=== PATIENT | male | born 1935 | race Caucasian/White ===

== ENCOUNTER 2019-07-21 14:13 | Emergency (ER) | payer MEDICARE, BC ==
[2019-07-21] MEDS ORDERED: Sodium Chloride 0.9% 10 ML Syringe FLUSH PRN (16:24)
--- NOTE | 2019-07-21 16:43 | EDM.PDOC ---
ED HPI GENERAL MEDICAL PROBLEM - General Chief Complaint: Upper Extremity Injury/Pain Stated Complaint: R HAND SKIN COMPLAINT Time Seen by Provider: 07/21/19 16:00 Source of Information: Reports: Patient History Limitations: Reports: No Limitations - History of Present Illness INITIAL COMMENTS - FREE TEXT/NARRATIVE: Patient is an 84-year-old male who presents to the ER with right hand pain and erythema and left elbow pain. 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 Upon waking on Sunday morning his right hand was warm, red, and swollen. He is also having some pain in his left elbow. He denies a history of gout, however states he does have some arthritis. He states that he did have a small open area on the his right hand "a couple days ago". He has not had any fever, chills, nausea, or vomiting. Patient also complains of pain to his left elbow. He did not have a known injury to it, however states that he was using it more frequently on Sunday as well. Right Hand Pain Score (Numeric/FACES): 8 - Related Data Allergies Allergy/AdvReac Type Severity Reaction Status Date / Time adhesive tape Allergy Blisters Verified 07/21/19 14:35 Home Meds: Home Meds cephALEXin [Keflex] 500 mg PO Q6H #28 cap 07/21/19 [Rx] Past Medical History HEENT History: Reports: Impaired Vision Other HEENT History: wears glasses - Past Surgical History HEENT Surgical History: Reports: Adenoidectomy, Tonsillectomy Social & Family History - Family History Family Medical History: Noncontributory - Tobacco Use Smoking Status *Q: Light Tobacco Smoker Years of Tobacco use: 30 Packs/Tins Daily: 0.1 - Caffeine Use Caffeine Use: Reports: Coffee Review of Systems - Review of Systems Review Of Systems: See Below Constitutional: Reports: No Symptoms Eyes: Reports: No Symptoms Ears: Reports: No Symptoms Nose: Reports: No Symptoms Mouth/Throat: Reports: No Symptoms Respiratory: Reports: No Symptoms Cardiovascular: Reports: No Symptoms GI/Abdominal: Reports: No Symptoms Genitourinary: Reports: No Symptoms Musculoskeletal: Reports: Other (right hand pain, redness, edema, and warmth. Left elbow pain with movement. ) Skin: Reports: Erythema (right hand) Neurological: Reports: No Symptoms Psychiatric: Reports: No Symptoms ED EXAM, GENERAL - Physical Exam Exam: See Below Exam Limited By: No Limitations General Appearance: Alert, WD/WN, No Apparent Distress Respiratory/Chest: No Respiratory Distress, Lungs Clear, Normal Breath Sounds, No Accessory Muscle Use, Chest Non-Tender Cardiovascular: Normal Peripheral Pulses, Regular Rate, Rhythm, No Edema, No Gallop, No JVD, No Murmur, No Rub Extremities: Other (Edema, warmth, and redness to the volar aspect of the right hand extending from the wrist into the fingers. There is a 1 cm partially healed lesion to the volar aspect of the right hand proximal of the second MCP joint. Patient verbalizes pain with range of motion of the left elbow. There is no redness, warmth, or edema noted to this joint.) Neurological: Alert, Oriented, CN II-XII Intact, Normal Cognition, Normal Gait, Normal Reflexes, No Motor/Sensory Deficits Psychiatric: Normal Affect, Normal Mood Skin Exam: Warm, Dry, Intact, Normal Color, No Rash Lymphatic: No Adenopathy Course - Vital Signs Last Recorded V/S: Last Vital Signs Temp 98.9 F 07/21/19 14:35 Pulse 90 07/21/19 14:35 Resp 16 07/21/19 14:35 BP 125/62 07/21/19 14:35 Pulse Ox 97 07/21/19 14:35 - Orders/Labs/Meds Orders: Active Orders 24 hr Category Date Time Status Peripheral IV Care [RC] . DIRECTED Care 07/21/19 16:24 Active Peripheral IV Insertion Adult [OM.PC] Stat Oth 07/21/19 16:24 Ordered Labs: Laboratory Tests 07/21/19 07/21/19 Range/Units 16:55 16:55 WBC 13.05 H (4.23-9.07) K/mm3 RBC 4.96 (4.63-6.08) M/mm3 Hgb 15.0 (13.7-17.5) gm/dl Hct 45.7 (40.1-51.0) % MCV 92.1 (79.0-92.2) fl MCH 30.2 (25.7-32.2) pg MCHC 32.8 (32.2-35.5) g/dl RDW Std Deviation 48.9 H (35.1-43.9) fL Plt Count 190 (163-337) K/mm3 MPV 9.7 (9.4-12.3) fl Neut % (Auto) 65.0 (34.0-67.9) % Lymph % (Auto) 19.8 L (21.8-53.1) % [place] % (Auto) 14.2 H (5.3-12.2) % Eos % (Auto) 0.5 L (0.8-7.0) Baso % (Auto) 0.2 (0.1-1.2) % Neut # (Auto) 8.49 H (1.78-5.38) K/mm3 Lymph # (Auto) 2.58 (1.32-3.57) K/mm3 [place] # (Auto) 1.85 H (0.30-0.82) K/mm3 Eos # (Auto) 0.06 (0.04-0.54) K/mm3 Baso # (Auto) 0.03 (0.01-0.08) K/mm3 Manual Slide Review Sodium 138 (136-145) mEq/L Potassium 3.9 (3.5-5.1) mEq/L Chloride 104 (98-107) mEq/L Carbon Dioxide 25 (21-32) mEq/L Anion Gap 12.9 (5-15) BUN 12 (7-18) mg/dL Creatinine 0.7 (0.7-1.3) mg/dL Est Cr Clr Drug Dosing 65.89 mL/min Estimated GFR (MDRD) > 60 (>60) mL/min BUN/Creatinine Ratio 17.1 (14-18) Glucose 108 (83-115) mg/dL Uric Acid 3.7 (3.5-7.2) mg/dL Calcium 8.7 (8.5-10.1) mg/dL Total Bilirubin 1.0 (0.2-1.0) mg/dL AST 18 (15-37) U/L ALT 18 (16-63) U/L Alkaline Phosphatase 79 (46-116) U/L C-Reactive Protein 9.8 H* (<1.0) mg/dL Total Protein 6.8 (6.4-8.2) g/dl Albumin 3.3 L (3.4-5.0) g/dl Globulin 3.5 gm/dL Albumin/Globulin Ratio 0.9 L (1-2) Meds: Medications Discontinued Medications Generic Name Dose Route Start Last Admin Trade Name Deisy PRN Reason Stop Dose Admin Cefazolin Sodium/Dextrose 2 gm 50 mls @ 100 mls/hr 07/21/19 17:59 07/21/19 18 :16 / Premix IV 07/21/19 18:28 100 mls/hr ONETIME ONE Administration Sodium Chloride 10 ml 07/21/19 16:24 Saline Flush FLUSH ASDIRECTED PRN Keep Vein Open - Re-Assessments/Exams Free Text/Narrative Re-Assessment/Exam: 07/21/19 18:01 Hematology was significant for a WBC elevated at 13.05, as well as a CRP elevated at 9.8. Based on his blood work, as well as exam findings, we will treat for cellulitis of the right hand. I will give him a dose of cefazolin in the ER and discharge him with Keflex. Discharge instructions as documented. Departure - Departure Time of Disposition: 18:41 Disposition: Home, Self-Care 01 Condition: Good Clinical Impression: Cellulitis of hand, right - Discharge Information *PRESCRIPTION DRUG MONITORING PROGRAM REVIEWED*: No *COPY OF PRESCRIPTION DRUG MONITORING REPORT IN PATIENT KELLY: No Prescriptions: cephALEXin [Keflex] 500 mg PO Q6H #28 cap Instructions: Cellulitis, Adult Referrals: PCP,Not In Area [Primary Care Provider] - Forms: ED Department Discharge Additional Instructions: You were seen in the emergency department today for pain, redness, and swelling of your right hand. Blood work and x-rays were completed. Your work-up was consistent with a diagnosis of cellulitis which is an infection of the skin in your hand. While in the ER, you received a dose of antibiotics through your IV. A prescription for Keflex has been sent to [facility]. Take this medication as prescribed. You may use Tylenol as needed for pain. Continue to monitor your symptoms. If you should develop worsening symptoms or any new symptoms of concern such as nausea, vomiting, fever, or chills, or worsening of the pain and swelling in your right hand, please return to the emergency department. Sepsis Event Note - Evaluation Sepsis Screening Result: No Definite Risk - Focused Exam Vital Signs: Vital Signs Temp Pulse Resp BP Pulse Ox 07/21/19 14:35 98.9 F 90 16 125/62 97 Date Exam was Performed: 07/21/19 Time Exam was Performed: 20:30 - My Orders Last 24 Hours: My Active Orders 07/21/19 16:24 Peripheral IV Care [RC] . DIRECTED Peripheral IV Insertion Adult [OM.PC] Stat - Assessment/Plan Last 24 Hours: My Active Orders 07/21/19 16:24 Peripheral IV Care [RC] . DIRECTED Peripheral IV Insertion Adult [OM.PC] Stat
[2019-07-21] MEDS ORDERED: ceFAZolin 2 GM in Premix Bag 1 BAG IV ONE (17:59)
--- NOTE | 2019-07-21 18:50 | CR ---
Left elbow: 4 views left elbow were obtained. Joint space narrowing noted between the capitellum and radial head. Osteophyte noted off the radial head. No joint effusion is seen. No acute fracture or dislocation is seen. Soft tissue calcification seen around the elbow most likely dystrophic. Bony structures are osteopenic. Impression: 1. Degenerative change and osteopenia. 2. Dystrophic soft tissue calcifications. 3. Nothing acute is appreciated. Diagnostic code #2 This report was dictated in MDT
--- NOTE | 2019-07-21 18:50 | CR ---
Right hand: 4 views of the right hand were obtained. Joint space narrowing is scattered within the MCP, DIP and PIP joints. Joint space narrowing is noted between the distal radius and navicular bone as well as lunate bone. Degenerative change also seen within the CMC joint of the thumb. Osteopenia is noted. Chondrocalcinosis is seen within the triangular fibrocartilage. Soft tissue swelling is present. No acute fracture or dislocation is seen. Impression: 1. Diffuse degenerative change and osteopenia. 2. Soft tissue swelling. 3. No acute bony abnormality is identified. Diagnostic code #2 This report was dictated in MDT
== END 2019-07-21 19:10 | disposition home or self-care (01) ==
LOC: JD.ED 14:13
DX: L03.113 Cellulitis of right upper limb (principal)
CPT/HCPCS: 36415; 73080; 73130; 80053; 84550; 85025; 86140; 96365; 99283; J0690

== ENCOUNTER 2020-07-07 10:01 | Emergency (ER) | payer MEDICARE, BC ==
[2020-07-07] MEDS ORDERED: Sodium Chloride 0.9% 10 ML Syringe FLUSH PRN ×2 (11:01→12:40)
[2020-07-07] MEDS ORDERED: Pantoprazole 40 MG in Sodium Chloride 0.9% 100 ML IV ONE (11:02)
[2020-07-07] MEDS ORDERED: Famotidine 20 MG/2 ML SDV IVPUSH ONE (11:05)
[2020-07-07] MEDS ORDERED: Pantoprazole 40 MG Vial IVPUSH ONE (11:14)
--- NOTE | 2020-07-07 11:56 | EDM.PDOC ---
ED HPI GENERAL MEDICAL PROBLEM - General Chief Complaint: Gastrointestinal Problem Stated Complaint: VOMITING/BLOOD IN STOOL Time Seen by Provider: 07/07/20 10:23 Source of Information: Reports: Patient History Limitations: Reports: No Limitations - History of Present Illness INITIAL COMMENTS - FREE TEXT/NARRATIVE: 85-year-old male presents to the emergency department today with complaints of black-colored emesis and stool. Patient states that he has been taking Eliquis since he was diagnosed with right DVT in his greater saphenous vein on April 272020. The patient states that about 5 days ago he ran out of his Eliquis and did not call his physician to have a refill ordered but instead started taking full-strength aspirin. The patient states that last evening he took his aspirin and felt as though it got caught in his throat. He said that it caused burning and indigestion type of pain. He eventually did vomit x1 and states that his emesis was black. Shortly after he did have a bowel movement that he states was black. Of note he is not taking iron supplementation and only takes thyroid medication along with the Eliquis he was previously prescribed. He states he then vomited once again this morning and had a second bowel movement this morning and both were still black in color. He states that since the emesis and bowel movement last evening he has felt slightly weak and shaky. He denies any chest pain, cough, shortness of breath, fever. He states he has had the chills off and on since last evening. He also states he has some abdominal pain to the left lower quadrant. Denies any issues with voiding. Patient's primary care physician is Dr. Patterson in [place] however he has been following Dr. Castillo here at [facility] in regards to this DVT. Lower Abdomen Pain Score (Numeric/FACES): 6 - Related Data Allergies Allergy/AdvReac Type Severity Reaction Status Date / Time adhesive tape Allergy Blisters Verified 07/07/20 10:28 Home Meds: Home Meds Apixaban [Eliquis] 5 mg PO ASDIRECTED 07/07/20 [History] Levothyroxine [Synthroid] 50 mcg PO ACBREAKFAST 07/07/20 [History] Magnesium 200 mg PO DAILY 07/07/20 [History] Pantoprazole Sodium [Protonix] 40 mg PO DAILY #20 tablet. 07/07/20 [Rx] Past Medical History HEENT History: Reports: Impaired Vision Other HEENT History: wears glasses Cardiovascular History: Reports: Blood Clots/VTE/DVT Other Cardiovascular History: blood clot in right leg Gastrointestinal History: Reports: Chronic Constipation, Hemorrhoids Endocrine/Metabolic History: Reports: Hypomagnesemia, Hypothyroidism Oncologic (Cancer) History: Reports: Basal Cell Carcinoma Other Oncologic History: skin cancer on right cheek removed 04/15 - Infectious Disease History Infectious Disease History: Reports: Chicken Pox, Measles, Mumps - Past Surgical History HEENT Surgical History: Reports: Adenoidectomy, Tonsillectomy Other Musculoskeletal Surgeries/Procedures:: broken arm, wrist, and shins Social & Family History - Family History Family Medical History: No Pertinent Family History - Tobacco Use Tobacco Use Status *Q: Current Every Day Tobacco User Years of Tobacco use: 60 Packs/Tins Daily: 0.2 Used Tobacco, but Quit: No - Caffeine Use Caffeine Use: Reports: Coffee - Recreational Drug Use Recreational Drug Use: No ED ROS GENERAL - Review of Systems Review Of Systems: Comprehensive ROS is negative, except as noted in HPI. ED EXAM, GI/ABD - Physical Exam Exam: See Below Exam Limited By: No Limitations General Appearance: Alert, WD/WN, No Apparent Distress Ears: Normal External Exam, Hearing Grossly Normal Nose: Normal Inspection Throat/Mouth: Normal Inspection, Normal Lips, Normal Voice, No Airway Compromise Head: Atraumatic, Normocephalic Neck: Normal Inspection, Supple, Non-Tender, Full Range of Motion Respiratory/Chest: No Respiratory Distress, Lungs Clear, Normal Breath Sounds, No Accessory Muscle Use, Chest Non-Tender Cardiovascular: Normal Peripheral Pulses, Regular Rate, Rhythm, No Edema, No Murmur GI/Abdominal Exam: Normal Bowel Sounds, Soft, No Distention, Tender (left lower quadrant with palpation) (Male) Exam: Deferred Rectal (Males) Exam: Deferred Back Exam: Normal Inspection, Full Range of Motion Extremities: Normal Inspection, Normal Range of Motion, Non-Tender, No Pedal Edema, Normal Capillary Refill Neurological: Alert, Oriented, Normal Cognition Psychiatric: Normal Affect Skin Exam: Warm, Dry, Intact, Normal Color, No Rash Lymphatic: No Adenopathy #1 Interpretation EKG Date: 07/07/20 Time: 10:17 Rhythm: NSR Rate (Beats/Min): 73 [place]: Normal P-Wave: Present QRS: Normal ST-T: Normal QT: Normal Comparison: NA - No Prior EKG EKG Interpretation Comments: Per Dr. Murray interpretation: Sinus rhythm @ 73 beats per minute; Q waves in lead III; mild nonspecific ST changes. Course - Vital Signs Text/Narrative:: 85-year-old male who developed black-colored emesis and black-colored stools x2 since last evening. 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 He has been taking Eliquis since that diagnosis however the past 5 days he ran out of his Eliquis and started taking a full-strength aspirin. Also has left lower quadrant abdominal pain and he denies any history of diverticulitis. Patient does not take any other prescription medications other than levothyroxine. 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 I discussed the case with Dr. Murray, and he recommends that I order Pepcid IV in addition to protonix IV. I will also do a rectal exam on this patient. Last Recorded V/S: Last Vital Signs Temp 97.4 F 07/07/20 10:21 Pulse 75 07/07/20 10:21 Resp 12 07/07/20 10:21 BP 100/70 07/07/20 10:21 Pulse Ox 96 07/07/20 10:21 Orthostatic Blood Pressure [ 101/65 Standing] Orthostatic Blood Pressure [ 112/67 Supine] - Orders/Labs/Meds Orders: Active Orders 24 hr Category Date Time Status Orthostatic Vital Signs [RC] ASDIRECTED Care 07/07/20 11:03 Active Sodium Chloride 0.9% [Saline Flush] Med 07/07/20 11:01 Active 10 ml FLUSH ASDIRECTED PRN Sodium Chloride 0.9% [Saline Flush] Med 07/07/20 12:40 Active 10 ml FLUSH ONETIME PRN Saline Lock Insert [OM.PC] Stat Oth 07/07/20 11:01 Ordered Medication Orders Sodium Chloride (Sodium Chloride 0.9% 10 Ml Syringe) 10 ml FLUSH ASDIRECTED PRN PRN Reason: Keep Vein Open Last Admin: 07/07/20 11:53 Dose: 10 ml Documented by: [email or web address] Sodium Chloride (Sodium Chloride 0.9% 10 Ml Syringe) 10 ml FLUSH ONETIME PRN PRN Reason: IV FLUSH Last Admin: 07/07/20 13:27 Dose: 10 ml Documented by: LORETTA Labs: Laboratory Tests 07/07/20 07/07/20 07/07/20 Range/Units 10:58 10:58 10:58 WBC 14.38 H (4.23-9.07) K/mm3 RBC 4.27 L (4.63-6.08) M/mm3 Hgb 13.2 L D (13.7-17.5) gm/dl Hct 41.1 (40.1-51.0) % MCV 96.3 H (79.0-92.2) fl MCH 30.9 (25.7-32.2) pg MCHC 32.1 L (32.2-35.5) g/dl RDW Std Deviation 50.5 H (35.1-43.9) fL Plt Count 233 (163-337) K/mm3 MPV 10.1 (9.4-12.3) fl Neut % (Auto) 81.3 H (34.0-67.9) % Lymph % (Auto) 10.8 L (21.8-53.1) % [place] % (Auto) 7.4 (5.3-12.2) % Eos % (Auto) 0.3 L (0.8-7.0) Baso % (Auto) 0.2 (0.1-1.2) % Neut # (Auto) 11.68 H (1.78-5.38) K/mm3 Lymph # (Auto) 1.55 (1.32-3.57) K/mm3 [place] # (Auto) 1.07 H (0.30-0.82) K/mm3 Eos # (Auto) 0.05 (0.04-0.54) K/mm3 Baso # (Auto) 0.03 (0.01-0.08) K/mm3 Sodium 141 (136-145) mEq/L Potassium 5.9 H D (3.5-5.1) mEq/L Chloride 106 (98-107) mEq/L Carbon Dioxide 27 (21-32) mEq/L Anion Gap 13.9 (5-15) BUN 42 H (7-18) mg/dL Creatinine 0.9 (0.7-1.3) mg/dL Est Cr Clr Drug Dosing 50.30 mL/min Estimated GFR (MDRD) > 60 (>60) mL/min BUN/Creatinine Ratio 46.7 H (14-18) Glucose 118 H (83-115) mg/dL Calcium 8.1 L (8.5-10.1) mg/dL Magnesium 2.1 (1.8-2.4) mg/dl Total Bilirubin 0.6 (0.2-1.0) mg/dL AST 24 (15-37) U/L ALT 27 (16-63) U/L Alkaline Phosphatase 70 (46-116) U/L Troponin I < 0.017 (0.00-0.056) ng/mL C-Reactive Protein 1.1 H* (<1.0) mg/dL Total Protein 6.4 (6.4-8.2) g/dl Albumin 3.1 L (3.4-5.0) g/dl Globulin 3.3 gm/dL Albumin/Globulin Ratio 0.9 L (1-2) 04// Range/Units 13:58 WBC (4.23-9.07) K/mm3 RBC (4.63-6.08) M/mm3 Hgb (13.7-17.5) gm/dl Hct (40.1-51.0) % MCV (79.0-92.2) fl MCH (25.7-32.2) pg MCHC (32.2-35.5) g/dl RDW Std Deviation (35.1-43.9) fL Plt Count (163-337) K/mm3 MPV (9.4-12.3) fl Neut % (Auto) (34.0-67.9) % Lymph % (Auto) (21.8-53.1) % [place] % (Auto) (5.3-12.2) % Eos % (Auto) (0.8-7.0) Baso % (Auto) (0.1-1.2) % Neut # (Auto) (1.78-5.38) K/mm3 Lymph # (Auto) (1.32-3.57) K/mm3 [place] # (Auto) (0.30-0.82) K/mm3 Eos # (Auto) (0.04-0.54) K/mm3 Baso # (Auto) (0.01-0.08) K/mm3 Sodium (136-145) mEq/L Potassium 4.8 (3.5-5.1) mEq/L Chloride (98-107) mEq/L Carbon Dioxide (21-32) mEq/L Anion Gap (5-15) BUN (7-18) mg/dL Creatinine (0.7-1.3) mg/dL Est Cr Clr Drug Dosing mL/min Estimated GFR (MDRD) (>60) mL/min BUN/Creatinine Ratio (14-18) Glucose (83-115) mg/dL Calcium (8.5-10.1) mg/dL Magnesium (1.8-2.4) mg/dl Total Bilirubin (0.2-1.0) mg/dL AST (15-37) U/L ALT (16-63) U/L Alkaline Phosphatase (46-116) U/L Troponin I (0.00-0.056) ng/mL C-Reactive Protein (<1.0) mg/dL Total Protein (6.4-8.2) g/dl Albumin (3.4-5.0) g/dl Globulin gm/dL Albumin/Globulin Ratio (1-2) Meds: Medications Generic Name Dose Route Start Last Admin Trade Name Freq PRN Reason Stop Dose Admin Sodium Chloride 10 ml 07/07/20 11:01 07/07/20 11:53 Sodium Chloride 0.9% 10 Ml Syringe FLUSH 10 ml ASDIRECTED PRN Administration Keep Vein Open Sodium Chloride 10 ml 07/07/20 12:40 07/07/20 13:27 Sodium Chloride 0.9% 10 Ml Syringe FLUSH 10 ml ONETIME PRN Administration IV FLUSH Discontinued Medications Generic Name Dose Route Start Last Admin Trade Name Freq PRN Reason Stop Dose Admin Diatrizoate Meglum/Diatrizoate Sod 120 ml 07/07/20 12:40 07/07/20 13:26 Diatrizoate Meglumine/Diatrizoate Sodium 37% 120 Ml Bottle PO 07/07/20 12:41 30 ml ONETIME ONE Administration Famotidine 20 mg 07/07/20 11:05 07/07/20 11:20 Famotidine 20 Mg/2 Ml Sdv IVPUSH 07/07/20 11:06 20 mg ONETIME ONE Administration Pantoprazole Sodium 40 mg/ 100 mls @ 200 mls/hr 07/07/20 11:02 07/07/20 11:47 Sodium Chloride IV 07/07/20 11:31 Not Given ONETIME ONE Sodium Chloride 500 mls @ 999 mls/hr 07/07/20 12:03 07/07/20 12:16 Normal Saline IV 07/07/20 12:33 999 mls/hr .BOLUS ONE Administration Iopamidol 100 ml 07/07/20 12:40 07/07/20 13:26 Iopamidol 612 Mg/Ml 100 Ml Bottle IVPUSH 07/07/20 12:41 100 ml ONETIME ONE Administration Pantoprazole Sodium 40 mg 07/07/20 11:14 07/07/20 11:20 Pantoprazole 40 Mg Vial IVPUSH 07/07/20 11:15 40 mg ONETIME ONE Administration - Re-Assessments/Exams Free Text/Narrative Re-Assessment/Exam: 07/07/20 12:14 Hematology reveals a WBC of 14.38, hemoglobin 13.2, hematocrit 41.1, platelet count 233, neutrophil percentage 81.3 Chemistry reveals a sodium of 141, potassium of 5.9, carbon dioxide is 27, anion gap 13.9, BUN is 42, creatinine is 0.9, glucose is 118, calcium is 8.1, magnesium 2.1, troponin is less than 0.017 Rectal exam was completed and he is positive for hemoccult blood. Again discussed the case with Dr. Murray. I have ordered for the patient to receive a bolus of IV fluids as his blood pressure is 95-100 systolic. I will repeat the potassium level after the bolus. He is not having and acute EKG changes and is not taking any potassium supplementation at this time. I have also ordered a CT of the abdomen to evaluate left lower abdominal pain. 07/07/20 12:31 CRP is 1.1 07/07/20 14:[address] of the abdomen and pelvis: 1. Left inguinal hernia which contains fat. 2. 1.1 cm indeterminate lesion off the upper left kidney which may represent small hemorrhagic cyst or less likely small solid abnormality. Given the size of this finding it is most likely incidental. 3. 3.5 cm distal abdominal aortic aneurysm. 4. Other findings as noted above which are nonacute. At this time I feel the patient's elevated WBCs are as a result of dehydration. I spoke with the surgeon on-call, , and he does not believe that this patient needs to be admitted for further evaluation. At this time the patient's hemoglobin level is stable. He would like to see him in the clinic this Sunday. I spoke with the patient's primary care provider, Dr. Castillo, and updated her regarding the patient's status. She states at this time she feels the patient could be discontinued from taking Eliquis. And she would like to see him in the clinic next week. 07/07/20 14:34 Repeat potassium level is 4.8. Departure - Departure Time of Disposition: 14:20 Disposition: Home, Self-Care 01 Condition: Good Clinical Impression: GI bleed Qualifiers: GI bleed type/associated pathology: unspecified gastrointestinal hemorrhage type Qualified Code(s): K92.2 - Gastrointestinal hemorrhage, unspecified - Discharge Information Prescriptions: Pantoprazole Sodium [Protonix] 40 mg PO DAILY #20 tablet.dr Instructions: Gastrointestinal Bleeding, [id number] Referrals: PCP,Not In Area [Primary Care Provider] - Sarah King MD [Physician] - Luiza Elizabeth MD [Physician] - Forms: ED Department Discharge Additional Instructions: You were seen in the emergency department today with complaints of gastrointestinal bleeding. Labs and a CT scan were completed. Your white blood cell count was elevated as well as your potassium however this is likely due to dehydration. Your hemoglobin level is stable at this time. CT scan was completed and did not show any acute source for infection. You will need to follow-up with Dr Bentley this sunday at [facility] for a 10:15 appointment. Please be there to check in at 10:00. You were given Protonix and Pepcid in the emergency department. I have sent a prescription for Protonix to your pharmacy. You can begin taking one tab daily starting tomorrow. You can stop taking your Eliquis. Dr. Henao would like to see you next week in the clinic and you will need to schedule an appointment. The clinic number is [phone]. Do NOT take anymore aspirin at this time. Should you develop bright red blood in your stool or vomit, you will need to return to the emergency department. Sepsis Event Note (ED) - Evaluation Sepsis Screening Result: No Definite Risk - Focused Exam Vital Signs: Vital Signs Temp Pulse Resp BP Pulse Ox 07/07/20 10:21 97.4 F 75 12 100/70 96 - My Orders Last 24 Hours: My Active Orders 07/07/20 11:01 Sodium Chloride 0.9% [Saline Flush] 10 ml FLUSH ASDIRECTED PRN Saline Lock Insert [OM.PC] Stat 07/07/20 11:03 Orthostatic Vital Signs [RC] ASDIRECTED 07/07/20 12:40 Sodium Chloride 0.9% [Saline Flush] 10 ml FLUSH ONETIME PRN - Assessment/Plan Last 24 Hours: My Active Orders 07/07/20 11:01 Sodium Chloride 0.9% [Saline Flush] 10 ml FLUSH ASDIRECTED PRN Saline Lock Insert [OM.PC] Stat 07/07/20 11:03 Orthostatic Vital Signs [RC] ASDIRECTED 07/07/20 12:40 Sodium Chloride 0.9% [Saline Flush] 10 ml FLUSH ONETIME PRN
[2020-07-07] MEDS ORDERED: Sodium Chloride 0.9% 500 ML IV ONE (12:03)
[2020-07-07] MEDS ORDERED: Diatrizoate Meglumine/Diatrizoate Sodium 37% 120 ML Bottle PO ONE (12:40)
[2020-07-07] MEDS ORDERED: Iopamidol 612 MG/ML 100 ML Bottle IVPUSH ONE (12:40)
--- NOTE | 2020-07-07 13:51 | CT ---
CT abdomen and pelvis Technique: Multiple axial sections were obtained from above the dome of the diaphragm inferiorly through the pubic symphysis. Intravenous and oral contrast was utilized. Delayed images were also obtained through the pelvis. Reconstructed coronal and sagittal images were also obtained. Comparison: No prior CT abdomen or pelvis exam is available. Findings: Visualized lung bases shows mild peripheral fibrosis. Liver shows no focal parenchymal abnormality. Gallbladder contains no calcified gallstones. Spleen appears within normal limits. Right adrenal gland shows a small nodule measuring 9 mm which is most likely benign. Left adrenal gland is normal. Pancreas shows no focal abnormality. Kidneys show symmetric contrast enhancement with no hydronephrosis. Small lesion is noted within the upper left kidney measuring 1.1 cm which does not appear to represent a normal cyst. Abdominal aorta shows diffuse atherosclerotic calcification. Distally the aorta is aneurysmal with AP dimension of 3.5 cm. Atherosclerotic change and ectasia are noted within the common iliac vessels. No retroperitoneal adenopathy is seen. No mesenteric abnormalities are seen. Appendix is seen which is normal. Fat-containing left inguinal hernia is noted. Bladder is somewhat thick walled. Small bladder diverticulum is noted anteriorly measuring approximately 2.5 cm. Prostate gland shows calcifications. Diverticuli are seen within the sigmoid colon and descending colon. No inflammatory change is appreciated. Delayed images show contrast within the distal ureters and within the bladder. Bone window settings were reviewed which show scattered degenerative change within the spine. 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 Superior endplate concavity is noted within L4 which appears old. Other degenerative change is noted which is likely old. Impression: 1. Left inguinal hernia which contains fat. 2. 1.1 cm indeterminate lesion off the upper left kidney which may represent small hemorrhagic cyst or less likely small solid abnormality. Given the size of this finding this is most likely incidental. 3. 3.5 cm distal abdominal aortic aneurysm. 4. Other findings as noted above which are nonacute. Diagnostic code #3
== END 2020-07-07 15:13 | disposition home or self-care (01) ==
LOC: JD.ED 10:01
DX: K92.2 Gastrointestinal hemorrhage, unspecified (principal); E03.9 Hypothyroidism, unspecified; Z72.0 Tobacco use; Z79.899 Other long term (current) drug therapy
CPT/HCPCS: 36415; 74177; 80053; 83735; 84132; 84484; 85025; 86140; 96374; 96375; 99284; C9113; J3490; J7030; Q9963; Q9967; 93010

== ENCOUNTER 2020-07-21 10:36 | Emergency (ER) | payer MEDICARE, BC ==
--- NOTE | 2020-07-21 11:44 | EDM.PDOC ---
ED HPI GENERAL MEDICAL PROBLEM - General Chief Complaint: Lower Extremity Injury/Pain Stated Complaint: POSS BLOOD CLOT IN BOTH LEGS Time Seen by Provider: 07/21/20 11:16 Source of Information: Reports: Patient, RN Notes Reviewed History Limitations: Reports: No Limitations - History of Present Illness INITIAL COMMENTS - FREE TEXT/NARRATIVE: Patient is an 85-year-old male who presents to the ER for the evaluation of possible blood clots in his legs. Patient does have a history of blood clots within the right leg, some years ago. Notes that he has been on Eliquis for this. The patient states that roughly 2 weeks ago, he was told to stop taking his Eliquis due to some suspected hematemesis that he developed after using some aspirin. Patient notes about 10 days ago, he resumed taking a baby aspirin. Patient notes that for the last few days, he has noticed 3 small lumps, to his right inner thigh, that have no redness or tenderness associated. He does have a few lumps to his left medial calf area, that is slightly warm to the touch, and the patient notes that they are pretty tender and painful. He also appreciated some swelling into his right arm/elbow, that he was slightly concerned about as well. There are no tender or painful lumps within his right elbow, it was just the swelling. He is denying any fevers or chills, cough or shortness of breath, or any sort of nausea/vomiting/diarrhea. Patient did have both of his Covid vaccinations in April 2020. Primary care providers are Dr. Penaloza, and Dr. Hoff from [facility] in [place], [place]. Left Lower Leg Pain Score (Numeric/FACES): 5 - Related Data Allergies Allergy/AdvReac Type Severity Reaction Status Date / Time adhesive tape Allergy Blisters Verified 07/07/20 10:28 Home Meds: Home Meds Levothyroxine [Synthroid] 50 mcg PO ACBREAKFAST 07/07/20 [History] Magnesium 200 mg PO DAILY 07/07/20 [History] Pantoprazole Sodium [Protonix] 40 mg PO DAILY #20 tablet. 07/07/20 [Rx] Warfarin [Coumadin] 5 mg PO DAILY #10 tab 07/21/20 [Rx] Past Medical History HEENT History: Reports: Impaired Vision Other HEENT History: wears glasses Cardiovascular History: Reports: Blood Clots/VTE/DVT Other Cardiovascular History: blood clot in right leg Gastrointestinal History: Reports: Chronic Constipation, Hemorrhoids Endocrine/Metabolic History: Reports: Hypomagnesemia, Hypothyroidism Oncologic (Cancer) History: Reports: Basal Cell Carcinoma Other Oncologic History: skin cancer on right cheek removed 04/15 - Infectious Disease History Infectious Disease History: Reports: Chicken Pox, Measles, Mumps - Past Surgical History HEENT Surgical History: Reports: Adenoidectomy, Tonsillectomy Other Musculoskeletal Surgeries/Procedures:: broken arm, wrist, and shins Social & Family History - Family History Family Medical History: No Pertinent Family History - Caffeine Use Caffeine Use: Reports: Coffee Review of Systems - Review of Systems Review Of Systems: Comprehensive ROS is negative, except as noted in HPI. ED EXAM, GENERAL - Physical Exam Exam: See Below Exam Limited By: No Limitations General Appearance: Alert, WD/WN, No Apparent Distress Respiratory/Chest: No Respiratory Distress, Lungs Clear, Normal Breath Sounds, No Accessory Muscle Use, Chest Non-Tender Cardiovascular: Normal Peripheral Pulses, Regular Rate, Rhythm Peripheral Pulses: 1+: Radial (R), Dorsalis Pedis (L), Dorsalis Pedis (R), 2+: Radial (L) Extremities: Normal Range of Motion, Normal Capillary Refill, Pedal Edema (1+ to Left lower leg, 1+ to Right upper arm), Increased Warmth (to L medial calf with the associated lumps), Redness (to L medial calf with the associated lumps), Other (3 lumps to Right medial thigh, nontender/or erythematous) Neurological: Alert, Oriented, Normal Cognition, No Motor/Sensory Deficits Psychiatric: Normal Affect, Normal Mood Skin Exam: Warm, Dry, Intact, No Rash, Erythema (to L medial calf with the associated lumps), Increased Warmth (to L medial calf with the associated lumps) Course - Vital Signs Last Recorded V/S: Last Vital Signs Temp 98.5 F 07/21/20 11:04 Pulse 71 07/21/20 11:04 Resp 20 07/21/20 11:04 BP 129/88 07/21/20 11:04 Pulse Ox 99 07/21/20 11:04 - Orders/Labs/Meds Labs: Laboratory Tests 07/21/20 07/21/20 07/21/20 Range/Units 11:45 11:45 11:45 WBC 9.11 H (4.23-9.07) K/mm3 RBC 3.54 L (4.63-6.08) M/mm3 Hgb 10.5 L D (13.7-17.5) gm/dl Hct 33.6 L (40.1-51.0) % MCV 94.9 H (79.0-92.2) fl MCH 29.7 (25.7-32.2) pg MCHC 31.3 L (32.2-35.5) g/dl RDW Std Deviation 50.3 H (35.1-43.9) fL Plt Count 348 H D (163-337) K/mm3 MPV 9.4 (9.4-12.3) fl Neut % (Auto) 61.9 (34.0-67.9) % Lymph % (Auto) 21.3 L (21.8-53.1) % [place] % (Auto) 12.5 H (5.3-12.2) % Eos % (Auto) 3.7 (0.8-7.0) Baso % (Auto) 0.4 (0.1-1.2) % Neut # (Auto) 5.63 H (1.78-5.38) K/mm3 Lymph # (Auto) 1.94 (1.32-3.57) K/mm3 [place] # (Auto) 1.14 H (0.30-0.82) K/mm3 Eos # (Auto) 0.34 (0.04-0.54) K/mm3 Baso # (Auto) 0.04 (0.01-0.08) K/mm3 Manual Slide Review Not Reportable PT 11.4 (9.7-12.0) SECONDS INR 1.07 APTT 29.3 (21.7-31.4) SECONDS Sodium 141 (136-145) mEq/L Potassium 4.8 (3.5-5.1) mEq/L Chloride 107 (98-107) mEq/L Carbon Dioxide 27 (21-32) mEq/L Anion Gap 11.8 (5-15) BUN 11 D (7-18) mg/dL Creatinine 0.8 (0.7-1.3) mg/dL Est Cr Clr Drug Dosing 56.59 mL/min Estimated GFR (MDRD) TNP BUN/Creatinine Ratio 13.8 L (14-18) Glucose 86 (83-115) mg/dL Calcium 8.3 L (8.5-10.1) mg/dL Total Bilirubin 0.5 (0.2-1.0) mg/dL AST 25 (15-37) U/L ALT 19 (16-63) U/L Alkaline Phosphatase 71 (46-116) U/L Total Protein 6.4 (6.4-8.2) g/dl Albumin 2.8 L (3.4-5.0) g/dl Globulin 3.6 gm/dL Albumin/Globulin Ratio 0.8 L (1-2) - Re-Assessments/Exams Free Text/Narrative Re-Assessment/Exam: 07/21/20 11:46 Patient presents to the ER for the evaluation of his possible blood clots. We will go ahead and get ultrasound of his bilateral legs, and right upper arm for further evaluation. We will go ahead and get some basic labs with anticipation that he will need to restart his Eliquis. 07/21/20 13:37 The patient's labs have resulted, white blood cell count is slightly elevated at 9.11 with no obvious left shift on automatic differential. Hemoglobin mildly low at 10.5, coagulation studies within normal limits or unremarkable, metabolic panel also unremarkable. The ultrasound still pending at this time. 07/21/20 14:50 Patient's ultrasounds have been performed, there are filling defects seen within the right axillary vein compatible with nonobstructing venous thrombosis other portions of the right venous structures appear patent. So there is a partially obstructing thrombus within the right axillary vein, he also has a mild thrombophlebitis within the right greater saphenous vein and a superficial clot within a varicosity within the left calf. Patient most recently saw Dr. King, so he states that he would be most comfortable with her as his primary care provider. Plan would be to re start the Eliquis and have close follow up with Dr. King. I did call her office, and she states that he did have some issues with his insurance regarding the cost of Eliquis, so she states that 5 mg Coumadin would be okay to start and she will follow up with him on Sunday to recheck his INR. Departure - Departure Time of Disposition: 14:58 Disposition: Home, Self-Care 01 Condition: Good Clinical Impression: Thrombophlebitis leg, Thrombosis of right axillary artery - Discharge Information *PRESCRIPTION DRUG MONITORING PROGRAM REVIEWED*: No *COPY OF PRESCRIPTION DRUG MONITORING REPORT IN PATIENT KELLY: No Instructions: Thrombophlebitis Referrals: PCP,Not In Area [Primary Care Provider] - Forms: ED Department Discharge Additional Instructions: You were seen in this ER for your suspected blood clots. Laboratory evaluation today revealed normal coagulation markers. Your ultrasound demonstrated a partially obstructing thrombus or clot within your right axillary vein, and also superficial thrombophlebitis in your bilateral lower extremities. I did consult with your primary care provider, Dr. King and we did opt to start you on Coumadin rather than Eliquis regarding your insurance and cost. You will be started on Coumadin, 5 mg once a day until further notice. This medication was electronically sent to the [facility] located near [facility]. An appointment was made for you with Dr. King, at 10 AM Sunday morning, you will need to check in at 9:40 AM to allow some time for clinic paperwork to be obtained. Please return to the ER at any time if you should develop any worsening symptoms, like feeling faint, dizziness, low blood pressure, any sort of blood in your stool/vomit or dark tarry stools. Sepsis Event Note (ED) - Evaluation Sepsis Screening Result: No Definite Risk - Focused Exam Vital Signs: Vital Signs Temp Pulse Resp BP Pulse Ox 07/21/20 11:04 98.5 F 71 20 129/88 99
--- NOTE | 2020-07-21 14:12 | US ---
Bilateral lower extremity deep venous ultrasound: Duplex and color Doppler evaluation was obtained of the right and left common femoral, proximal greater saphenous, superficial femoral, popliteal, posterior tibial and peroneal veins. Comparison: Previous right lower extremity deep venous ultrasound. Findings: Right greater saphenous vein shows intraluminal thrombus compatible with mild thrombophlebitis. There is also a superficial clot within a varicosity within the left calf. Normal phasic flow, augmentation and compression is seen within the deep veins. Impression: 1. Findings compatible with bilateral superficial thrombophlebitis as noted above. 2. No findings of deep venous thrombosis are seen within either the right or left lower extremities. Diagnostic code #3
--- NOTE | 2020-07-21 14:12 | US ---
Right upper venous ultrasound: Duplex and color Doppler evaluation was obtained of the right internal jugular, subclavian, axillary, brachial, basilic, radial and ulnar veins. Comparison: No prior right upper extremity venous imaging is available. Findings: Filling defects are seen within the right axillary vein compatible with nonobstructing venous thrombus. Other portions of the right upper venous structures appear patent. Impression: 1. Partially obstructing thrombus within the right axillary vein. Diagnostic code #5
== END 2020-07-21 15:30 | disposition home or self-care (01) ==
LOC: JD.ED 10:36
DX: I80.03 Phlebitis and thrombophlebitis of superficial vessels of lower extremities, bilateral (principal); I82.A11 Acute embolism and thrombosis of right axillary vein; E03.9 Hypothyroidism, unspecified; Z91.048 Other nonmedicinal substance allergy status; Z86.718 Personal history of other venous thrombosis and embolism; Z79.01 Long term (current) use of anticoagulants; Z79.899 Other long term (current) drug therapy
CPT/HCPCS: 36415; 80053; 85025; 85610; 85730; 93970; 93970-26; 93971-26-RT; 93971-RT; 99284; 99284-25

== ENCOUNTER 2020-07-26 10:38 | Emergency (ER) | payer MEDICARE, BC | END 2020-07-26 11:05 | disposition left against medical advice (07) | LOC: JD.ED 10:38 | DX: Z53.21 Procedure and treatment not carried out due to patient leaving prior to being seen by health care provider (principal) ==

== ENCOUNTER 2021-10-31 20:22 | Emergency (ER) | payer MEDICARE, OTHER ==
[2021-10-31] MEDS ORDERED: Fluorescein 1 MG Ophth Strip EYEBOTH ONE (20:53)
[2021-10-31] MEDS ORDERED: Polymyxin B/Trimethoprim 10 ML Bottle EYELF ONE (22:04)
== END 2021-10-31 22:16 | disposition home or self-care (01) ==
LOC: JD.ED 20:22
DX: S63.502A Unspecified sprain of left wrist, initial encounter (principal); H10.9 Unspecified conjunctivitis; E03.9 Hypothyroidism, unspecified; Z88.8 Allergy status to other drugs, medicaments and biological substances; Z79.899 Other long term (current) drug therapy; W01.0XXA Fall on same level from slipping, tripping and stumbling without subsequent striking against object, initial encounter
CPT/HCPCS: 73110-26-LT; 73110-LT; 99283

== ENCOUNTER 2023-03-17 20:08 | Emergency (ER) | payer MEDICARE, OTHER ==
[2023-03-17] MEDS ORDERED: Dextrose 5%-0.9% NaCl 1,000 ML IV SCH (20:30)
[2023-03-17] MEDS ORDERED: Acetaminophen 325 MG Tab PO ONE (20:31)
[2023-03-17 20:41] LABS: BASOPHILS ABSOLUTE AUTO 0.1 K/mm3 (0.0-0.2); BASOPHILS PERCENT AUTO 0.6 % (0.0-1.0); EOSINOPHILS ABSOLUTE AUTO 0.2 K/mm3 (0.0-0.4); EOSINOPHILS PERCENT AUTO 1.7 % (0.0-6.0); HEMATOCRIT 43.7 % (42.0-52.0); HEMOGLOBIN 14.8 gm/dl (14.0-18.0); IMMATURE GRAN ABSOLUTE AUTO 0.02 K/mm3 (0.00-0.05); IMMATURE GRAN PERCENT AUTO 0.2 % (0.0-0.4); LYMPHOCYTES PERCENT AUTO 10.5 % (24.0-44.0); MEAN CORPUSCULAR HEMOGLOBIN 30.6 pg (28.0-32.0); MEAN CORPUSCULAR HGB CONC 33.9 g/dl (32.0-36.0); MEAN CORPUSCULAR VOLUME 90.5 fl (83.0-99.0); MEAN PLATELET VOLUME 9.6 fl (9.4-12.4); MONOCYTES ABSOLUTE AUTO 1.4 K/mm3 (0.0-0.8); MONOCYTES PERCENT AUTO 15.5 % (0.0-8.0); NEUTROPHILS ABSOLUTE AUTO 6.6 K/mm3 (1.8-7.7); NEUTROPHILS PERCENT AUTO 71.5 % (41.0-71.0); PLATELET COUNT,PLT 148 K/mm3 (150-400); RED BLOOD CELL COUNT 4.83 M/mm3 (4.52-5.90); WHITE BLOOD CELL COUNT,WBC 9.25 K/mm3 (3.9-11.3)
[2023-03-17 20:50] LABS: INR 1.72; PROTHROMBIN TIME 17.7 SECONDS (9.7-12.0)
[2023-03-17 21:05] LABS: LACTIC ACID 0.5 mmol/L (0.4-2.0)
[2023-03-17 21:12] LABS: A/G RATIO 0.9 (1-2); ALBUMIN 3.2 g/dl (3.4-5.0); BILIRUBIN TOTAL 0.7 mg/dL (0.2-1.0); C-REACTIVE PROTEIN 4.3 mg/dL (<1.0); CALCIUM 8.4 mg/dL (8.5-10.1); EST CRCL DRUG DOSING (CG) 43.56 mL/min; MAGNESIUM 1.8 mg/dL (1.8-2.4); PROTEIN TOTAL,TP 6.6 g/dl (6.4-8.2)
[2023-03-17 22:19] LABS: CORONAVIRUS COVID-19 NAA NEGATIVE (NEGATIVE); INFLUENZA A NAA POSITIVE (NEGATIVE); RESPIRATORY SYNCYTIAL VIR NAA NEGATIVE (NEGATIVE)
[2023-03-17] MEDS ORDERED: Oseltamivir 75 MG Cap PO ONE (22:56)
== END 2023-03-17 23:45 | disposition home or self-care (01) ==
LOC: JD.ED 20:08
DX: S09.90XA Unspecified injury of head, initial encounter (principal); S51.812A Laceration without foreign body of left forearm, initial encounter; S80.01XA Contusion of right knee, initial encounter; S80.02XA Contusion of left knee, initial encounter; J10.1 Influenza due to other identified influenza virus with other respiratory manifestations; E03.9 Hypothyroidism, unspecified; F17.210 Nicotine dependence, cigarettes, uncomplicated; Z91.048 Other nonmedicinal substance allergy status; Z79.899 Other long term (current) drug therapy; Z79.01 Long term (current) use of anticoagulants; W18.30XA Fall on same level, unspecified, initial encounter; Y92.009 Unspecified place in unspecified non-institutional (private) residence as the place of occurrence of the external cause
CPT/HCPCS: 0241U; 36415; 70450; 71045; 80053; 83605; 83735; 83880; 84484; 85025; 85610; 86140; 87040; 93005; 96360; 96361; 99285; A9270; J7042; 93010; 99283